=== PATIENT | female | born 1940 | race African-American/Black ===

== ENCOUNTER 2016-06-03 17:14 | Emergency (ER) | payer MEDICARE ==
[2016-06-03 17:14] LABS: BASOPHILS 0.3 %; BASOPHILS ABSOLUTE 0.02 10/3/uL (0.0-0.16); EOSINOPHILS 0 %; ER CBC TAT 0 Hrs 03 Mins; HEMATOCRIT 36.7 % (36.0-48.0); HEMOGLOBIN 12.2 g/dL (12.0-16.0); IMMATURE GRANULOCYTES 0.2 %; IMMATURE GRANULOCYTES ABSOLUTE 0.01 10/3/uL (0.0-0.11); LYMPHOCYTES 34.4 %; LYMPHOCYTES ABSOLUTE 2.03 10/3/uL (0.67-4.30); MEAN CORPUS HGB CONC 33.2 g/dL (32.0-36.0); MEAN CORPUSCULAR HEMOGLOB 30.7 pg (26.0-34.0); MEAN CORPUSCULAR VOLUME 92.4 fL (80-100); MONOCYTES 5.6 %; MONOCYTES ABSOLUTE 0.33 10/3/uL (0.21-1.20); NEUTROPHILS 59.5 %; NEUTROPHILS ABSOLUTE 3.51 10/3/uL (2.02-8.40); PLATELET COUNT 222 10/3/uL (150-400); RBC DISTRIBUTION WIDTH 12.8 % (12.0-16.0); RED CELL COUNT 3.97 10/6/uL (4.0-5.6); WHITE BLOOD CELLS 5.9 10/3/uL (4.5-10.5)
[~2016-06-03 17:14] MED LIST: *UNABLE3; ADVAIR250 INH; CLARIT10 PO; D100 PO; DIOV80 PO; EXFORGE1 TA2 PO; L20 PO; LIPITOR10 PO; LORTAB 5 PO; MAGOX4 PO; MEDROLPAK4 PO; MSCONT15 PO; NEUR600 PO; NORCO1 TA2 PO; P5 PO; PRILO PO; PROAIR HFA INH; SYMBICORT 160/41 INH INH; TEKTUR150 PO; XANAX1 MG PO
[2016-06-03 17:16] LABS: MANUAL DIFF NO %
[2016-06-03 17:27] LABS: CHLORIDE, SERUM 110 MMOL/L (96-112); GFR AFRICAN AMERICAN 73 ML/MIN (>=60); GFR NON AFRICAN AMERICAN 63 ML/MIN (>=60); GLUCOSE, SERUM 73 MG/DL (60-99); SODIUM, SERUM 142 MMOL/L (135-148)
[2016-06-03 17:28] LABS: BUN (BLOOD UREA NITROGEN) 15 MG/DL (6-23); CO2 (CARBON DIOXIDE) 22 MMOL/L (24-34)
== END 2016-06-03 18:12 | disposition home or self-care (01) ==
LOC: ER 17:14
PROVIDERS: Emergency Medicine
DX: J30.2 Other seasonal allergic rhinitis (principal); R47.01 Aphasia; J44.9 Chronic obstructive pulmonary disease, unspecified; I10 Essential (primary) hypertension; Z87.891 Personal history of nicotine dependence; Z86.73 Personal history of transient ischemic attack (TIA), and cerebral infarction without residual deficits; Z79.899 Other long term (current) drug therapy
CPT/HCPCS: 70450; 71010; 80048; 85025; 93005; 99285